=== PATIENT | male | born 1955 | race Caucasian/White ===

== ENCOUNTER 2017-04-20 06:16 | Observation (INO) | payer OTHER ==
[2017-04-14 14:01] VITALS: BMI 39.0
[~2017-04-20] VITALS: Ht 193 cm; Wt 150.0 kg
[~2017-04-20 06:16] MED LIST: BENA20TA14 PO; CEFAZOLIN 3000MG IV PUSH 15 ML IV SCH; CETI10TA84 PO; FLVHFA44 INH; FURO-85 PO; LACTATED RINGER'S 1000ML 1,000 ML IV SCH; LACTATED RINGER'S 1000ML IV SCH; METO100T44 PO; PANT40TA PO; VNTHFA/IN INH
[2017-04-20 06:37] VITALS: BP 142/93; PULSE 76; TEMP 36.6; O2SAT 97; Ht 193 cm; Wt 150.0 kg
[2017-04-20] MEDS ORDERED: BACITRACIN 50000 UNIT VIAL ONE (07:24)
[2017-04-20] MEDS ORDERED: BUPIVACAINE 0.5 % 5 MG/1 ML MPF 30ML VIAL ONE (07:24)
[2017-04-20] MEDS ORDERED: LIDOCAINE HCL 1% 20 ML VIAL ONE (07:24)
[2017-04-20] MEDS ORDERED: PROPOFOL IV EMULSION 10 MG/ML 100 ML VIAL IV ONE (07:30)
[2017-04-20] MEDS ORDERED: FENTANYL CITRATE INJ 50 MCG/1 ML 2 ML VIAL ONE ×2 (07:43→11:24)
[2017-04-20] MEDS ORDERED: MIDAZOLAM HCL 1 MG/ML 2ML VIAL ONE (07:43)
--- NOTE | 2017-04-20 07:58 | History & Physical Bridge Note ---
H&P Re-Evaluation Bridge Note: I have examined the patient, reviewed the History & Physical and in the interval since the performance of the History & Physical I have noted the following changes of clinical significance: No changes noted
[2017-04-20] MEDS ORDERED: DiphenhydrAMINE HCL 50 MG/ML VIAL ONE (08:45)
[2017-04-20] MEDS ORDERED: METHYLPREDNISOLONE 125 MG VIAL ONE (08:45)
[2017-04-20] MEDS ORDERED: RANITIDINE HCL 25 MG/ML INJ ONE (08:45)
[2017-04-20] MEDS ORDERED: LIDOCAINE HCL 2% 2 ML VIAL (20MG/ML) ONE (09:09)
[2017-04-20] MEDS ORDERED: PHENYLEPHRINE 100MCG/ML 5ML SYR ONE (09:09)
[2017-04-20] MEDS ORDERED: PROPOFOL IV EMULSION 10 MG/ML 20 ML VIAL IV ONE (09:09)
[2017-04-20] MEDS ORDERED: EpHEDrine SULFATE 50MG/5ML SYR ONE (09:09)
--- NOTE | 2017-04-20 12:20 | [facility] Post Operative Brief Note ---
Immediate Operative Summary Operative Date Apr 20, 2017. 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
--- NOTE | 2017-04-20 12:24 | Discharge Instructions ---
Discharge Instructions Date of Service Apr 20, 2017. Admission Reason for Admission: Ventricular Tachycardia, Cardiomyopathy Discharge Discharge Diagnosis / Problem: NICM, LBBB, Chronic systolic HF-NYHA Class III, NSVT Discharge Goals Goal(s): Improve function Activity Recommendations Activity Limitations: as noted below Lifting Limitations: no more than 10 pounds (do not lift the left elbow over the left shoulder for 1 month; do not lift more than 10 pounds with the left arm for 2 weeks) Shower/Bathe: tomorrow Driving or Machine Use: resume 1 day after discharge . Instructions / Follow-Up Instructions / Follow-Up ACTIVITY RECOMMENDATIONS: * Do not raise affected arm over head for 4 weeks. SPECIAL CARE INSTRUCTIONS: * If bleeding occurs, apply direct pressure to area for 5 minutes. * Call your doctor if you have severe pain, fever, drainage or bleeding at site. * Keep dry for 24 hours. * Keep any scheduled doctor's appointment. * Implant Card - hand held device with website information given. SKIN IRRITATION: * You may experience some redness and/or swelling in the area where radiation was administered. If any skin irritation occurs, please contact your family physician. FOLLOW UP VISIT: Keep any scheduled doctor appointments. Current Hospital Diet Patient's current hospital diet: AHA Diet (Heart Healthy), Low Sodium Diet (2gm Na) Discharge Diet Recommended Diet: AHA Diet (Heart Healthy), Low Sodium Diet (2gm Na) Procedures Procedures Performed: BiVentricular rate responsive ICD with peripheral and C/S venogram Pending Studies Studies pending at discharge: no Medical Emergencies . Who to Call and When: Medical Emergencies: If at any time you feel your situation is an emergency, please call 911 immediately. . Non-Emergent Contact Non-Emergency issues call your: Shim Plug Cutter . . "Provider Documentation" section prepared by Elaine Quiroz. . VTE Core Measure Inpt VTE Proph given/why not?: Treatment not indicated
[2017-04-20] MEDS ORDERED: OXYCODONE/ACETAMINOPHEN 5-325 TAB PO PRN (12:30)
[2017-04-20] MEDS ORDERED: ACETAMINOPHEN 325 MG TAB PO PRN (12:30)
--- NOTE | 2017-04-20 12:30 | Discharge Summary ---
Discharge Summary Date of Service Apr 20, 2017. Discharge Summary Admission Date: 04/20/2017 Discharge Date: Apr 21, 2017 Discharge Disposition: Home Principal Diagnosis: NICM Secondary Diagnoses/Problems: NSVT LBBB Chronic systolic HF-NYHA Class III PVCs mutlifocal HTN PFO MONICA-probably Procedures: BiV ICD rate responsive with peripheral and coronary sinus venograms under fluoroscopic guidance Medication Reconciliation Continued Medications: Albuterol Hfa (Ventolin Hfa) 200 Puffs/96959 Mcg Aers 2 PUFFS INH Q6H PRN for Shortness of Breath Benazepril (Lotensin) 20 Mg Tab 20 MG PO QAM, TAB Cetirizine (Zyrtec) 10 Mg Tab 10 MG PO HS, TAB Fluticasone Propionate (Flovent Hfa) 120 Puffs/5280 Mcg Aero 2 PUFFS INH BID PRN for Shortness of Breath Furosemide (Lasix) 20 Mg Tab 20 MG PO QAM, TAB Metoprolol Succ (Toprol Xl) (Toprol-Xl ) 100 Mg Tabcr 100 MG PO QAM, TAB Pantoprazole (Protonix) 40 Mg Tab 40 MG PO QAM, TAB Admission Information Physical Exam (per Admitting): aaox3, NAD NC/AT, EOMI Supple, No JVD Nrl S1/S2, no murmur CTA b/l no w/r/r abd obese no LE edema b/l no focal deficits skin intact Hospital Course Pt admitted for elective implant of BiV ICD due to LBBB, NICM and Chronic systolic HF-NYHA Class III. He underwent procedure without any complications and monitored overnight then discharged home. Total time spent on discharge = 30 minutes This includes examination of the patient, discharge planning, medication reconciliation, and communication with other providers. Discharge Instructions ACTIVITY RECOMMENDATIONS: * Do not raise affected arm over head for 4 weeks. SPECIAL CARE INSTRUCTIONS: * If bleeding occurs, apply direct pressure to area for 5 minutes. * Call your doctor if you have severe pain, fever, drainage or bleeding at site. * Keep dry for 24 hours. * Keep any scheduled doctor's appointment. * Implant Card - hand held device with website information given. SKIN IRRITATION: * You may experience some redness and/or swelling in the area where radiation was administered. If any skin irritation occurs, please contact your family physician. FOLLOW UP VISIT: Keep any scheduled doctor appointments.
--- NOTE | 2017-04-20 12:54 | Anesthesiology Progress Note ---
Anesthesia Post Op Note Date & Time Apr 20, 2017 at 12:54 Vital Signs Pain Intensity: 0 Vital Signs Past 12 Hours Date Time Temp Pulse Resp B/P (MAP) Pulse Ox O2 Delivery O2 Flow Rate FiO2 04/20/17 12:30 73 16 158/82 (107) 98 Room Air 04/20/17 06:37 36.6 76 20 142/93 (109) 97 Room Air Notes Mental Status: alert / awake / arousable, participated in evaluation Pt Amnestic to Procedure: Yes Nausea / Vomiting: adequately controlled Pain: adequately controlled Airway Patency, RR, SpO2: stable & adequate BP & HR: stable & adequate Hydration State: stable & adequate Anesthetic Complications: no major complications apparent
[2017-04-20 12:57] VITALS: BP 145/96; PULSE 86; TEMP 36.7; O2SAT 95
[2017-04-20] MEDS ORDERED: ALBUTEROL HFA 8 GM INHALER INH PRN (13:00)
[2017-04-20] MEDS ORDERED: FLUTICASONE PROP HFA INH 44 MCG INHALER INH PRN (13:00)
[2017-04-20] MEDS ORDERED: IV FLUIDS COMPLETED PRN (13:00)
[2017-04-20 13:30] VITALS: BP 133/93; PULSE 69; TEMP 36.6; O2SAT 94
[2017-04-20 15:31] VITALS: BP 118/76; PULSE 60; TEMP 36.8; O2SAT 96
[2017-04-20 19:35] VITALS: BP 150/73; PULSE 60; TEMP 36.5; O2SAT 91
[2017-04-20] MEDS ORDERED: CETIRIZINE HCL 10 MG TAB PO SCH (21:00)
--- NOTE | 2017-04-20 21:23 | OPERATIVE REPORT ---
DATE OF OPERATION: 04/20/2017 PREOPERATIVE DIAGNOSES: Left bundle branch block, nonischemic cardiomyopathy, ejection fraction now 15%, nonsustained ventricular tachycardia and chronic systolic heart failure, [place] Heart Association class 3. POSTOPERATIVE DIAGNOSES: Same. PROCEDURE: Biventricular rate responsive implantable cardiac defibrillator under fluoroscopic guidance along with a peripheral venogram as well as a venogram of the coronary sinus. SURGEON: Elaine Quiroz DO. STAGE ELECTRICIAN HELPER: None. ANESTHESIA: Monitored anesthetic care given via anesthesiology, a total of 300 mcg of fentanyl, 4 mg of Versed, 1200 mg of propofol. Due to IV CONTRAST ALLERGY, he was given 125 mg of Solu-Medrol, 50 mg of Benadryl and 50 mg of Zantac. IV CONTRAST: 67 mL. BLOOD LOSS: 30 mL. COMPLICATIONS: None. CONDITION: Stable. URINE OUTPUT: Not applicable. SPECIMENS: None. FINDINGS: See below. DRAINS: None. ANTIBIOTICS: Two grams of Ancef. IV FLUIDS: 200 mL. INDICATIONS: This is a 61-year-old gentleman with a past medical history for nonischemic cardiomyopathy, recently diagnosed. His ejection fraction is now worsened at 15%. He had normal coronary arteries by cardiac catheterization in March 2017, Holter monitor showed nonsustained VT of about 20 beat, PVCs multifocal on a Holter monitor, chronic systolic heart failure, [place] Heart Association class 3, left bundle branch block, QRS 148 milliseconds, hypertension, obstructive sleep apnea, PFO, obesity and arthroscopy, status post total right knee replacement. The patient was recommended biventricular implantable cardiac defibrillator due to his nonischemic cardiomyopathy, left bundle branch block and heart failure. CONSENT: Consent was obtained prior to the patient going into the electrophysiology lab. The patient was informed of risks, benefits, alternatives to the procedure. The risks include but not limited to sudden cardiac , cardiac arrhythmias, cerebrovascular accident, myocardial infarction, injury to blood vessels chamber of heart or lungs, bleeding and infection. The patient understood these risks and agreed to the procedure as planned. Informed consent was obtained. DESCRIPTION OF THE PROCEDURE: The patient was brought into the electrophysiology lab in a fasting state. He was connected to continuous cardiac monitoring. Timeout was performed to ensure patient's identity and procedure correctly. The patient was prepped and draped over the left infraclavicular space in normal surgical standard fashion. Moderate conscious sedation was given throughout the procedure via anesthesiologist. Please refer to the notes for complete details. [place] precautions were maintained throughout the procedure. 10 mL of 1% lidocaine, bupivacaine mixture were given in left deltopectoral groove. Incision was made in left deltopectoral groove. Blunt dissection was performed down to identify the cephalic vein and cephalic vein was identified and isolated using 0 silk ties. We then set up to do a peripheral venogram so I could identify the axillary vein. Axillary vein was identified and then accessed through a needle stick without any complications. The guidewire was inserted without any resistance. Then I went back to the cephalic vein. I nicked it with an 11 blade and a guidewire was inserted without any resistance. A 7-[place] sheath was inserted over the guidewire, the dilator was removed and a second guidewire was inserted through the 7-[place] sheath to allow for retained venous access. The sheath was then removed and a 9.5-[place] sheath was then inserted over the retained guidewires in the cephalic vein. The dilator and guidewire were removed, and a right ventricular defibrillator lead was then advanced into the right ventricle and positioned into right ventricle apex under fluoroscopic guidance. There was adequate pacing and sensing thresholds and no diaphragmatic stimulation with high output pacing. The 9.5-[place] sheath was peeled away and lead was fixated to pectoralis muscle using 0 silk suture. A 7-[place] sheath was then inserted over the retained guidewire through the cephalic vein without any resistance. The guidewire and dilator were removed. The right atrial pacing lead was then advanced into the right atrium and positioned into the right atrial appendage under fluoroscopic guidance. There was adequate pacing and sensing thresholds and no diaphragmatic stimulation with high output pacing. The 7-[place] sheath was peeled away and lead was fixated to pectoralis muscle using 0 silk suture. A 9.5-[place] sheath was then inserted over the guidewire through the axillary vein site. The guidewire and dilator were removed. Then ultimately used the [employer] multipurpose outer sheath. I did try the extended hook as well as a multipurpose X with no success because the coronary sinus has had a very sharp takeoff that was twisted. With the MPX, I was able to cannulate the coronary sinus using the EP diagnostic Decapolar coronary sinus catheter. Balloon was placed through the MPX and I did a venogram of the coronary sinus in [place] and AP. I ultimately had to use an inner 90 followed by a wire to cannulate the branch. The posterolateral branch of the coronary sinus, I was able to drag a Whisper out through there and the inner 90 out passed into the branch so I then removed the wire and tracked the LV pacing lead over the Whisper wire prior out to the branch and then we had adequate pacing thresholds and no diaphragmatic stimulation with high output pacing. The inner 90 was then split under fluoroscopic guidance followed by the outer MP sheath followed then by the 9.5-[place] sheath was peeled away. The LV lead was fixated to the pectoralis muscle using 0 silk suture. A defibrillator pocket was created using blunt dissection over the pectoralis muscle within the pectoralis fascia and the pocket was flushed with copious amounts of bacitracin saline wash and inspected for hemostasis. The defibrillator was then attached to the leads making sure that the pins were in appropriate position, passed the set screws and the set screws were all tightened. The defibrillator was then placed in the pocket, making sure that the leads were lying flat beneath the device and then the incision was closed in a 3-layer fashion using a 2-0 Vicryl interrupted suture followed by a 3-0 Vicryl interrupted suture followed by a 4-0 Monocryl running stitch and Dermabond was applied. EQUIPMENT: 1. Generator is a [email or web address] MRI quad TORCH STRAIGHTENER-D SureScan, [id number], serial #[id number]. 2. Right atrial lead, Medtronic 5076-52 cm, serial #[id number]. 3. Right ventricular lead, Medtronic 6935M 62 cm, serial #[id number]. 4. Right ventricular lead, Medtronic 4598-88 cm, serial #[id number]. INTRAOPERATIVE TESTIN. Right atrial P-wave 4 millivolts, impedance 99 ohms, threshold 0.5 volts at 0.9 milliamps. 2. Right ventricular lead: R-wave is 3.3 millivolts, impedance 540 ohms, threshold 0.3 volts at 0.6 milliamps. 3. Left ventricular lead programmed lv3 to RV coil, impedance 549 ohms, threshold 1.7 volts at 3.6 milliamps. FINAL MEASUREMENTS THROUGH THE DEVICE: 1. Right atrial lead: P-wave 2.3 millivolts, impedance 513 ohms, threshold 0.75 volts at 0.4 milliseconds. 2. Right ventricular lead: R waves 3.4 millivolts, impedance 456 ohms, threshold 0.5 volts at 0.4 milliseconds. 3. Left ventricular lead: Programmed LV4-LV3, bipolar, impedance 836 ohms, threshold 2 volts at 0.4 milliseconds. 4. The RV coil was 89 ohms. FINAL PARAMETERS: DDDR 60/130. Right ventricular and right atrial amplitude 3.5 volts, pulse width 0.4 milliseconds, sensitivity 0.3 millivolts, left ventricular amplitude 4 volts, pulse width 0.4 milliseconds. A VT zone at 171 beats per minute at 16 detection intervals and a VF zone at 200 beats per minute, 30/40 detection interval. IMPRESSION: Successful implantation of biventricular implantable cardiac defibrillator rate responsive under fluoroscopic guidance along with peripheral venogram and a venogram of the coronary sinus, secondary to a nonischemic cardiomyopathy, left bundle branch block, chronic systolic heart failure, [place] Association class 3 and nonsustained ventricular tachycardia. PLAN: Monitor patient overnight, 12-lead ECG, chest x-ray. He is not allowed to lift the left elbow over his left shoulder for 1 month. He cannot lift more than 10 pounds with the left arm for 2 weeks. He can shower tomorrow, let water run over the incision. Continue his home medications, followup with general cardiology as scheduled. Would repeat an echo in about 3 months' time to see if it is improved and follow up in our [facility] in 1 week for device and wound check. I attest to the content of the Intraoperative Record and any orders documented therein. Any exception s are noted below.
[2017-04-21 00:09] VITALS: BP 122/71; PULSE 61; TEMP 36.5; O2SAT 95
[2017-04-21 03:35] VITALS: BP 125/77; PULSE 67; TEMP 36.6; O2SAT 95
--- NOTE | 2017-04-21 06:52 | DIAGNOSTIC IMAGING REPORT ---
CHEST 2 VIEWS ROUTINE CLINICAL HISTORY: Chest x-ray status post pacemaker placement COMPARISON STUDY: No previous studies for comparison. FINDINGS: The heart is borderline enlarged. There is a left subclavian dual-chamber central venous pacemaker. No pneumothorax is visualized. There is no focal pulmonary consolidation. There are no pleural effusions. There is no failure.[ IMPRESSION: No evidence of pneumothorax. Electronically signed by: Mehdi Mendoza M.D. 04/21/2017 6:51 AM Dictated Date/Time: 04/21/2017 6:49 AM
[2017-04-21 07:30] VITALS: BP 122/79; PULSE 58; TEMP 36.9; O2SAT 94
--- NOTE | 2017-04-21 08:07 | Cardiology Follow-Up ---
Subjective Subjective Date of Service: Apr 21, 2017. Pt evaluation today including: conversation w/ patient, physical exam, chart review, lab review, review of studies Pain: none Review of Systems Constitutional: No fatigue Respiratory: No shortness of breath, No dyspnea on exertion Cardiac: No chest pain, No edema, No palpitations Abdomen: No vomiting, No diarrhea Objective Vital Signs Last Vital Signs Documentation Date Time Temp Pulse Resp B/P (MAP) Pulse Ox O2 Delivery O2 Flow Rate FiO2 04/21/17 07:30 36.9 58 18 122/79 (93) 94 Room Air Physical Exam: General Appearance: WD/WN, no apparent distress Eyes: bilateral eyes PERRL, bilateral eyes EOMI Neck: supple, no JVD Respiratory/Chest: lungs clear, normal breath sounds Cardiovascular: regular rate, rhythm, no edema, no murmur Abdomen: soft Extremities: no pedal edema Neurologic/Psychiatric: alert, oriented x 3 Skin: warm/dry (left pectoral incision intact; no hematoma mild ecchymosis), no rash Assessment and Plan Impression: NICM s/p BiV ICD NSVT LBBB Chronic systolic HF-NYHA Class III PVCs mutlifocal HTN PFO MONICA-probably Plan: Ok for discharge home today continue home medications do not lift the left elbow over the left shoulder for 1 month shower tomorrow f/u in [facility] [facility] next week Discharge planning: home Medications: Medications Administered Medications (Trade) Dose Ordered Sig/Adrian Route Start Time Stop Time Status Last Admin Dose Admin Lactated Ringer's 1,000 ml @ 15 mls/hr Q24H IV 04/20/17 06:00 04/20/17 18:00 DC 04/20/17 07:11 15 MLS/HR Cefazolin Sodium 15 ml @ 3 mls/min PREOP IV 04/20/17 06:00 04/20/17 18:00 DC 04/20/17 08:07 3 MLS/MIN Diphenhydramine HCl (Benadryl Inj) 50 mg STK-MED ONCE .ROUTE 04/20/17 08:45 04/20/17 08:46 DC 04/20/17 08:45 50 MG Methylprednisolone Sodium Succinate (Solu-Medrol IV) 125 mg STK-MED ONCE .ROUTE 04/20/17 08:45 04/20/17 08:46 DC 04/20/17 08:45 125 MG Ranitidine HCl (zANTac IV) 50 mg STK-MED ONCE .ROUTE 04/20/17 08:45 04/20/17 08:46 DC 04/20/17 08:45 50 MG Oxycodone/ Acetaminophen (Percocet 5-325mg Tab) 1 tab for pain scale 4-6 2 t... Q6H PRN PO 04/20/17 12:30 05/04/17 12:29 04/20/17 13:27 1 TAB Acetaminophen (Tylenol Tab) 650 mg Q4H PRN PO 04/20/17 12:30 05/20/17 12:29 04/20/17 21:29 650 MG Cetirizine HCl (zyrTEC TAB) 10 mg HS PO 04/20/17 21:00 05/20/17 20:59 04/20/17 19:39 10 MG Furosemide (Lasix Tab) 20 mg QAM PO 04/21/17 09:00 05/21/17 08:59 04/21/17 07:43 20 MG Metoprolol Succinate (Toprol Xl Tab) 100 mg QAM PO 04/21/17 09:00 05/21/17 08:59 04/21/17 07:44 100 MG Pantoprazole Sodium (Protonix Tab) 40 mg QAM PO 04/21/17 09:00 05/21/17 08:59 04/21/17 07:43 40 MG Benazepril HCl (Lotensin Tab) 20 mg QAM PO 04/21/17 09:00 05/21/17 08:59 04/21/17 07:43 20 MG Lab Results: Telemetry: AV biv paced ECG: AP biv paced CXR: no PTX, leads in position ICD interrogation: normal lead testing and stable from implant
[2017-04-21 08:17] VITALS: BP 122/79; PULSE 58; TEMP 36.9; O2SAT 94
[2017-04-21] MEDS ORDERED: PANTOprazole SOD 40 MG TAB PO SCH (09:00)
[2017-04-21] MEDS ORDERED: METOPROLOL SUCC 50MG EXT REL TAB PO SCH (09:00)
[2017-04-21] MEDS ORDERED: FUROSEMIDE 20 MG TAB PO SCH (09:00)
[2017-04-21] MEDS ORDERED: BENAZEPRIL HCL 10 MG TAB PO SCH (09:00)
--- NOTE | 2017-04-21 10:12 | Anesthesiology Progress Note ---
Anesthesia Post Op Note Date & Time Apr 21, 2017 at 10:09 Vital Signs Pain Intensity: 0.0 Vital Signs Past 12 Hours Date Time Temp Pulse Resp B/P (MAP) Pulse Ox O2 Delivery O2 Flow Rate FiO2 04/21/17 08:17 36.9 58 18 94 Room Air 04/21/17 08:00 Room Air 04/21/17 07:30 36.9 58 18 122/79 (93) 94 Room Air 04/21/17 04:00 Room Air 04/21/17 03:35 36.6 67 18 125/77 (93) 95 04/21/17 00:09 36.5 61 16 122/71 (88) 95 04/21/17 00:00 Room Air Notes Mental Status: alert / awake / arousable, participated in evaluation Pt Amnestic to Procedure: Yes Nausea / Vomiting: adequately controlled Pain: adequately controlled Airway Patency, RR, SpO2: stable & adequate BP & HR: stable & adequate Hydration State: stable & adequate Anesthetic Complications: no major complications apparent
== END 2017-04-21 09:55 | disposition home or self-care (01) ==
LOC: C.ACU 06:16 → ENRESERV 10:49 → C.2T 12:22
PROVIDERS: ADMIT Internal Medicine; ATTEND Internal Medicine
DX: I49.3 Ventricular premature depolarization (principal); I42.9 Cardiomyopathy, unspecified; E78.5 Hyperlipidemia, unspecified; I50.82 Biventricular heart failure; M15.9 Polyosteoarthritis, unspecified; Z96.659 Presence of unspecified artificial knee joint; M17.11 Unilateral primary osteoarthritis, right knee; R26.9 Unspecified abnormalities of gait and mobility; I10 Essential (primary) hypertension; E66.01 Morbid (severe) obesity due to excess calories; Z68.41 Body mass index [BMI] 40.0-44.9, adult; G47.33 Obstructive sleep apnea (adult) (pediatric); J45.909 Unspecified asthma, uncomplicated; K21.9 Gastro-esophageal reflux disease without esophagitis; Z91.041 Radiographic dye allergy status; Z82.49 Family history of ischemic heart disease and other diseases of the circulatory system; Z82.3 Family history of stroke; Z87.891 Personal history of nicotine dependence; I25.10 Atherosclerotic heart disease of native coronary artery without angina pectoris